=== PATIENT | male | born 1950 | race Hispanic/Latino ===

== ENCOUNTER 2024-12-13 20:18 | Emergency (ER) | payer SELFPAY ==
[~2024-12-13] VITALS: Ht 170.2 cm; Wt 93.4 kg
[2024-12-13] MEDS: acetaMINOPHEN 325 MG TAB PO ONE (21:47)
[2024-12-13] MEDS: ketOROlac 15MG/ML VIAL (15MG/ML) IM ONE (21:48)
[2024-12-13] MEDS: ACYCLOVIR 800 MG TABLET PO ONE (21:49)
--- NOTE | 2024-12-13 21:50 | NUR ---
PHARMACY CALLED, PENDING [id number] FROM [employer]. Addendum: 12/13/24 at 2227 by [email or web address] PHARMACY CALLED, PENDING [id number] FROM [employer].
[2024-12-13] MEDS ORDERED: ACYC-138 PO (22:22)
[2024-12-13] MEDS ORDERED: METH4TAB3 PO (22:22)
--- NOTE | 2024-12-13 22:22 | ERN ---
ED Note History of Present Illness Stated Complaint: PAIN TO LEFT SIDE OF HEAD, HIGH BLOOD PRESSURE Chief Complaint: Headache Time Seen by MD: 20:22 Time Seen by Midlevel: 20:22 Dictation: The patient is a 74-year old male with no past medical history who presents to the emergency department with complaints of painful rash to left side of face and left scalp onset 2 days ago. Patient reports also he checked his blood pressure and it was 150s systolic. Patient denies any head trauma, nausea, vomiting, dizzy, chest pain or shortness of breath. Denies any visual deficits or eye pain . Allergies: Coded Allergies: No Known Allergies (Unverified Allergy, Unknown, 12/13/24) Home Meds Active Scripts Methylprednisolone (Medrol) 4 Mg Tab.ds.pk, 4 MG PO AD for 6 Days, #1 PACK Day 1: Take 2 tablets before breakfast,1 tablet after lunch and supper, and 2 tablets at bedtime. Day 2: Take1 tablet before breakfast,1 tablet after lunch,1 tablet after supper, and 2 tablets at bedtime. Day 3: Take 1 tablet before breakfast, 1 tablet after lunch, 1 tablet after supper, and 1 tablet at bedtime. Day 4: Take 1 tablet before breakfast, 1 tablet after lunch, and 1 tablet at bedtime. Day 5: Take1 tablet before breakfast and 1 tablet at bedtime. Day 6: Take 1 tablet before breakfast. Prov:NIKO ALVALEN [facility] 12/13/24 Acyclovir (Acyclovir) 800 Mg Tablet, 1 TAB PO 5XDAY for 7 Days, #35 TAB 0 Refills Prov:ALVALILLI [facility] 12/13/24 Past Medical History Past Medical History: No Pertinent History Surgical History: None RN Note Reviewed/Agreed w/PFSH: Yes Review of System Dictation Constitutional: Negative for fever,chills, and weight loss Eyes: Negative for injury, pain,redness, and discharge ENT: Negative for injury,pain or swelling Cardiovascular: Negative for chest pain, palpitations, and edema Respiratory: Negative for shortness of breath, cough, and wheezing, Abdomen/GI: Negative for abdominal pain, nausea, vomiting, diarrhea, and constipation Back: Negative for injury and pain : Negative for injury, bleeding and discharge MS/Extremity: Negative for injury and deformity Skin: Negative for discoloration positive for rash Neuro: Negative for headache, weakness, numbness, tingling, and seizure Psych: Negative for suicide ideation, homicidal ideation, and hallucinations Initial Vital Sign VS Vital Signs Date Time Temp Pulse Resp B/P (MAP) Pulse Ox O2 Delivery O2 Flow Rate FiO2 12/13/24 21:22 98.2 92 20 184/91 95 Room Air 12/13/24 23:25 0 21 Physical Exam Dictation Vital Signs reviewed General Appearance: Alert, oriented x 3, no acute distress, well developed, nourished. Head and Face: non-traumatic. Eyes: PERRL, pink conjunctivas, eyelid no trauma, anterior chamber with arcus senilis. no dermatomes Ears: Pinnas intact and no signs of trauma or erythema ear canals clear and no discharge TM, no rash no erythema Nose: No discharge, no bleeding. Oropharynx: Mouth normal, tongue pink. pharynx clear,no erythema, tonsils no exudates, no abscesses noted, mucous membrane moist Neck: Supple, non-tender, no thyromegaly, no masses, no JVD, no bruits Breast:Deferred Chest:No tenderness, no crepitus, no paradoxical movement, no retractions Lungs:Clear, well-ventilated, symmetric, no rales, no wheezing, no rhonchi, no stridor, good breath sounds bilaterally Heart: Regular rate, regular rhythm, no murmur, no gallops Vascular: no peripheral edema, Abdomen: Soft, positive bowel sounds, nondistended, no guarding, nontender, no rebound, no masses no hepatomegaly, no splenomegaly, no Haines's sign, no hernias. Rectal: Deferred Genital: Deferred Neurological: Normal speech, motor function intact, sensory function intact Musculoskeletal: Neck nontender, full range of motion, back nontender, full range of motion, Extremities: nontender, full range of motion Skin: Color pink, dry, no turgor, , no lacerations, no abrasions, no contusions. erythremic papular rash to left side of scalp at v1 region and left side of face. no drainage, Lymphatic: Deferred Results (Laboratory/Radiology) Labs Reviewed?: Yes ED Course ED Course Orders Procedure Category Date Status Time Tetracaine Hcl PHA 12/13/24 Complete (Pontocaine 0.5% 21:30 Fluorescein Sodium PHA 12/13/24 Complete (Aqlzx-E-Esuov At) 21:30 Acyclovir 800 Mg PHA 12/13/24 Complete Tablet (Zovirax 800mg 21:30 Acetaminophen 325 Tab PHA 12/13/24 Complete (Tylenol 325mg Tab 21:30 Ketorolac PHA 12/13/24 Complete Tromethamine 15mg/Ml 21:30 Current Medications Medications (Trade) Dose Ordered Sig/Saray Route PRN Reason Start Time Stop Time Status Last Admin Dose Admin Acetaminophen (TYLenol 325MG TAB) 650 mg ONCE ONCE PO 12/13/24 21:30 12/13/24 21:31 DC 12/13/24 21:47 Acyclovir (Zovirax 800mg Tab) 800 mg ONCE ONCE PO 12/13/24 21:30 12/13/24 21:31 DC 12/13/24 21:49 Fluorescein Sodium (Kfeef-M-Fhfxi At) 1 strip ONCE OP 12/13/24 21:30 12/13/24 23:27 DC 12/13/24 23:14 Ketorolac Tromethamine (toRADol) 15 mg ONCE ONCE IM 12/13/24 21:30 12/13/24 21:31 DC 12/13/24 21:48 Tetracaine HCl (Pontocaine 0.5% Ophth Soln) 1 OR 2 DROPS ONCE OP 12/13/24 21:30 12/13/24 23:27 DC 12/13/24 23:15 Vital Signs Date Time Temp Pulse Resp B/P (MAP) Pulse Ox O2 Delivery O2 Flow Rate FiO2 12/13/24 23:25 98.1 88 16 151/81 9 Room Air* 0 21 12/13/24 21:22 98.2 92 20 184/91 95 Room Air Medical Decision Making MDM MDM: The patient is a 74-year old male with no past medical history who presents to the emergency department with complaints of painful rash to left side of face and left scalp onset 2 days ago. Patient reports also he checked his blood pressure and it was 150s systolic. Patient denies any head trauma, nausea, vomiting, dizzy, chest pain or shortness of breath. Denies any visual deficits or eye pain . Patients rash consistent with shingles, rash in the V1 region. No ophthalmic involvement. Patient in no acute distress, neurologically intact. Will be discharge to follow up with PCP Differential diagnosis: shingles, cellulitis, migraine Need for hospitalization: Patient does not meet criteria for hospitalization. There are no social concerns with this patient. DX & DISP Disposition: Discharge Departure Impression: Primary Impression: Shingles Condition: Stable Scripts Methylprednisolone (Medrol) 4 Mg Tab.ds.pk 4 MG PO AD for 6 Days, #1 PACK Day 1: Take 2 tablets before breakfast,1 tablet after lunch and supper, and 2 tablets at bedtime. Day 2: Take1 tablet before breakfast,1 tablet after lunch,1 tablet after supper, and 2 tablets at bedtime. Day 3: Take 1 tablet before breakfast, 1 tablet after lunch, 1 tablet after supper, and 1 tablet at bedtime. Day 4: Take 1 tablet before breakfast, 1 tablet after lunch, and 1 tablet at bedtime. Day 5: Take1 tablet before breakfast and 1 tablet at bedtime. Day 6: Take 1 tablet before breakfast. Prov: LILLI ALVA [facility] 12/13/24 Acyclovir (Acyclovir) 800 Mg Tablet 1 TAB PO 5XDAY for 7 Days, #35 TAB 0 Refills Prov: LILLI ALVA 12/13/24 Additional Instructions: Your rash is related to Shingles. Shingles can be contagious so avoid any contact with person, immunocompromise or immature babies. Avoid touching your rash. Take your medications as prescribed. FOLLOW-UP WITH PRIMARY CARE PROVIDER IN 1 TO 2 DAYS. TAKE MEDICATIONS DIRECTED HERE IN THE EMERGENCY ROOM. OKAY TO CONTINUE HOME MEDICATIONS UNLESS OTHERWISE DISCUSSED DURING YOUR VISIT IN THE EMERGENCY ROOM TODAY. RETURN TO YOUR NEAREST EMERGENCY ROOM IF SYMPTOMS WORSEN OR IF THERE IS NO IMPROVEMENT. CALL 911 IF YOU NEED IMMEDIATE ASSISTANCE. TAKE TYLENOL OR MOTRIN [id number] NEEDED AND IF NO CONTRAINDICATIONS ARE PRESENT. INCREASE ORAL HYDRATION. A WOUND CULTURE OR URINE CULTURE WAS ORDERED HERE IN THE EMERGENCY ROOM DEPARTMENT PLEASE FOLLOW-UP WITH PRIMARY CARE PROVIDER AND ADVISE THEM TO GET REPEAT PORTS FROM OUR FACILITY. IF YOU HAD ANY ASA WRAP/SPLINTS THAT WERE APPLIED HERE, PLEASE DO NOT REMOVE THEM UNTIL YOU SEE YOUR PRIMARY CARE OR SPECIALTY. Referrals: SELF,REFERRAL (PCP) I have examined patient, & reviewed all documents, & agreed W/ the Diagnosis, and Plan I performed a substantive portion of the visit. I have reviewed and personally made and approve the management plan that is documented in the notes by myself with CARLOS/resident. I acknowledged full responsibility for the patient's management plan. LILLI ALVA Dec 13, 2024 22:22 ERICKA CAMPOS DO Dec 14, 2024 03:06
[2024-12-13] MEDS: FLUORESCEIN SODIUM 1 STRIP STRIP OP SCH (23:14)
[2024-12-13] MEDS: TETRACAINE HCL 0.5% 4 ML OPHTH SOLN OP SCH (23:15)
[2024-12-13 23:25] VITALS: BP 151/81; PULSE 88; RESP 16; TEMP 98.1; O2SAT 9
== END 2024-12-13 23:27 | disposition home or self-care (01) ==
LOC: EDH 20:18
DX: B02.9 Zoster without complications (principal); Z79.899 Other long term (current) drug therapy
CPT/HCPCS: 99283; 96372; J1885